=== PATIENT | female | born 1960 | race Caucasian/White ===

== ENCOUNTER 2022-09-03 14:09 | Observation (INO) | payer OTHER, SELFPAY ==
[2022-09-03] VITALS (9 sets, daily range): BP systolic 130–169; BP diastolic 57–78; PULSE 50–67; RESP 15–18; TEMP 36.4–36.7; O2SAT 98–100; BMI 30.4; BMI 28.2
--- NOTE | 2022-09-03 14:43 | EKG12_ITS ---
Test Reason : SYNCOPE Blood Pressure : / mmHG Vent. Rate : 066 BPM Atrial Rate : 066 BPM P-R Int : 188 ms QRS Dur : 138 ms QT Int : 418 ms P-R-T Axes : 066 -54 062 degrees QTc Int : 438 ms Sinus rhythm with occasional Premature ventricular complexes Left bundle branch block Abnormal ECG Confirmed by RONAK SINGLETARY, BRYCE ([id number]), supervising editor trailer MO REYES ([id number]) on 09/04/2022 9:46:01 AM Referred By: RAMON Confirmed By:BRYCE SIMONS MD
--- NOTE | 2022-09-03 15:00 | RAD_ITS ---
STUDY: X-RAY CHEST REASON FOR EXAM: Female, 62 years old. Chest pain . Near syncopal episode. TECHNIQUE: Single AP portable view of the chest. COMPARISON: None. FINDINGS: EKG electrodes are seen. The lungs are clear and expanded. There is no demonstrated pleural abnormality. Normal size heart. Normal mediastinum and chris. Normal visualized pulmonary arteries. Normal visualized aortic arch and descending thoracic aorta. Normal visualized thoracic spine. Normal visualized ribs, clavicles, and shoulders. There is no demonstrated abnormality of the visualized soft tissue structures of the upper abdomen. RAD/Chest 1 View (Portable) IMPRESSION: Normal x-ray examination of the chest. Electronically Signed: Otto Hurley MD at 15:12 EST ,
[2022-09-03 15:11] LABS: Absolute Lymphocyte Count 2.44 X10^3/uL (0.83-4.51); Absolute Neutrophil Count 4.2 X10^3/uL (2.0-7.7); Basophil# 0.03 X10^3/uL; Basophil% 0.4 % (0-1); Eosinophil# 0.04 X10^3/uL; Eosinophils% 0.6 % (0-5); Hematocrit 35.4 % (37-47); Hemoglobin 12.5 g/dL (12.0-15.0); Lymphocyte # 2.44 X10^3/ul (0.83-4.51); Lymphocyte % 34.6 % (19-41); Mean Corp Hgb Conc 35.3 g/dL (32-36); Mean Corpuscular Volume 87.8 fL (81-99); Mean Platelet Vol. 9.7 fl (6.2-12.0); Monocyte# 0.33 X10^3/uL; Monocyte% 4.7 % (0-10); NRBC Flagged by Analyzer 0 % (0-5); Neutrophil % 59.4 % (47-70); Platelet Count 260 K/mm3 (150-450); RBC Distribution Width CV 13.3 % (11.6-14.6); RBC Distribution Width SD 42.4 fl (35.1-43.9); Red Blood Count 4.03 M/mm3 (4.2-5.4); White Blood Count 7.1 K/mm3 (4.4-11.0)
[2022-09-03 15:19] LABS: Anion Gap 8 (5-15); BUN 21 mg/dL (7-18); BUN/Creat Ratio 16.9 RATIO (10-20); Calcium,Total 9.6 mg/dL (8.5-10.1); Chloride 105 mmol/L (98-107); Creatinine, Serum 1.24 mg/dL (0.55-1.02); EST Glomerular Filtration Rate 46 mL/min (>60); Est Glom Filt Rate - Afr Amer 56 mL/min (>60); Estimated Creatinine Clearance 43.47 ml/min; Glucose 136 mg/dL (74-106); Potassium 2.8 mmol/L (3.5-5.1); Sodium Level 141 mmol/L (136-145); Troponin-I HS 7 pg/mL (3.0-54.0)
--- NOTE | 2022-09-03 16:24 | CT_ITS ---
INDICATION: tia EXAMINATION: CT BRAIN - CT Head or Brain W/O Contrast Injection TECHNIQUE: Multiple axial images were obtained of the head without intravenous contrast. A radiation dose optimization technique was used for this scan. IV Contrast dosage and agent: None. COMPARISON: None available FINDINGS: BRAIN PARENCHYMA: No intra- or extra-axial hemorrhage. No evidence of acute infarct. No intracranial mass or mass effect. There is preservation of the davis/white matter interface. Posterior fossa structures are unremarkable. CSF SPACES: Appropriate for age. No hydrocephalus. Basal cisterns are patent. CALVARIUM, SKULL BASE, PARANASAL SINUSES AND MASTOID AIR CELLS: Clear. No discrete lytic or blastic abnormalities. ORBITS: Both globes, extraocular muscles, optic nerves and retrobulbar fat appear unremarkable. ASPECTS Score for Acute Strokes: 10 CT/Brain/Head without Contrast IMPRESSION: Negative Brain CT without contrast. Electronically Signed: Ab Lopez MD at 17:15 EST ,
--- NOTE | 2022-09-03 16:48 | EX.ED.DYSGE1 ---
HPI History of Present Illness Chief Complaint: Syncope Narrative Narrative: 62-year-old female presenting with concern for a fainting episode. She states she was out today and shopping and had eaten periodically throughout the day. She notes that she did have 1 episode of diarrhea. Then about 15 minutes later 200 she stated while she was checking out she felt like she was lightheaded. She was helped to sit down and was witnessed to not be speaking. Her eyes were open and she was not responding to questions. She was handed a cup of water which she did not grab. The patient does not recall this episode. She did not fall or hit her head. She states prior to this she was feeling well. She has a known. She has no history of syncope or seizure disorder. There was no seizure-like activity witnessed. After about 5 minutes the patient started speaking and making room and was noted to have a little bit of slurred speech which has resolved. Now she feels like she is a little bit off but she feels improved. She reports she did not have any chest pain or shortness of prior to the episode. No history of stroke or TIA. [facility] Medical History Atrial septal defect Pulmonary stenosis Home Medications aspirin 81 mg tablet,delayed release 81 mg PO DAILY PRN Pain 09/03/22 [History Last Taken 09/03/22] biotin 10 mg tablet 10 mg PO DAILY SUPPLEMENT 09/03/22 [History Last Taken 09/03/22] cholecalciferol (vitamin D3) 125 mcg (5,000 unit) capsule 125 mcg PO DAILY SUPPLEMENT 09/03/22 [History Last Taken 09/03/22] cyanocobalamin (vitamin B-12) 2,000 mcg tablet,extended release (Vitamin B-12 ER) 4,000 mcg PO DAILY SUPPLEMENT 09/03/22 [History Last Taken 09/03/22] losartan 50 mg-hydrochlorothiazide 12.5 mg tablet 1 tab PO DAILY 09/03/22 [History Last Taken 09/03/22] omeprazole 20 mg capsule,delayed release 20 mg PO DAILY 09/03/22 [History Last Taken 09/03/22] Allergy/AdvReac Type Severity Reaction Status Date / Time No Known Allergies Allergy Verified 09/03/22 14:17 Surgical History H/O kidney removal Social History Smoking Status: Never smoker ROS ROS ED Constitutional Constitutional ED: Denies chills or fever(s) Eyes Eyes: Denies change in vision or diplopia ENT ENT ED: Denies rhinorrhea or sore throat Cardiovascular Cardiovascular: Denies chest pain or palpitations EXAM Physical Exam Const Vital Signs: 09/03/22 14:13 09/03/22 14:18 09/03/22 14:47 Temperature 97.6 F L Temperature Source Temporal Pulse Rate 57 L Pulse Rate [Lying] Pulse Rate [Sitting (for 1 minute prior to obtaining)] Pulse Rate [Standing (for 1 minute prior to obtaining)] Respiratory Rate 15 Respiratory Effort Normal Non-Labored Respiratory Pattern Normal Blood Pressure 134/65 H Blood Pressure [Lying] Blood Pressure [Sitting (for 1 minute prior to obtaining)] Blood Pressure [Standing (for 1 minute prior to obtaining)] Blood Pressure Mean 88 Blood Pressure Mean [Lying] Blood Pressure Mean [Sitting (for 1 minute prior to obtaining)] Blood Pressure Mean [Standing (for 1 minute prior to obtaining)] Pulse Ox 99 100 Oxygen Delivery Method Room Air Room Air 09/03/22 16:43 09/03/22 16:10 Temperature Temperature Source Pulse Rate 58 L Pulse Rate [Lying] 64 Pulse Rate [Sitting (for 1 minute prior to obtaining)] 62 Pulse Rate [Standing (for 1 minute prior to obtaining)] 66 Respiratory Rate 15 Respiratory Effort Respiratory Pattern Blood Pressure 148/65 H Blood Pressure [Lying] 147/57 H Blood Pressure [Sitting (for 1 minute prior to obtaining)] 147/78 H Blood Pressure [Standing (for 1 minute prior to obtaining)] 148/65 H Blood Pressure Mean 92 Blood Pressure Mean [Lying] 87 Blood Pressure Mean [Sitting (for 1 minute prior to obtaining)] 101 Blood Pressure Mean [Standing (for 1 minute prior to obtaining)] 92 Pulse Ox 100 Oxygen Delivery Method Room Air Positive well nourished General Appearance ED: NAD; Negative for pallor HEENT Reports moist mucous membranes Negative for trauma Eyes PERRL and EOMs intact bilaterally General Eye ED: Yes pale conjunctiva and scleral icterus Neck no lymphadenopathy Chest Wall inspection of chest normal and palpation of chest normal Resp normal respiratory effort and clear to auscultation bilaterally Auscultation: Negative for rales, rhonchi or wheezes Cardio regular rate and regular rhythm GI normal to inspection, nondistended, normoactive bowel sounds Palpation: soft Neuro oriented x3 and CN's II-XII intact bilaterally Sensorium / Orientation: alert Motor Exam: strength 5/5 throughout Psych mental status grossly normal Skin no rashes or lesions noted General Skin Exam: Negative for jaundice or pallor MDM MDM MDM Narrative Medical decision making narrative: Patient presenting after a 5-minute episode where she was unresponsive. She was sitting upright with her eyes open and not responding. When she started to speak she was a little bit slurred initially but her speech improved. EMS obtained a blood sugar which was in the 130s. Patient did not have any seizure activity. She denies any history of syncope. She does not recall this episode at all. NIH stroke scale score of 0. Will obtain orthostatics. Is possible that she could have had a near syncopal episode however it does not explain 5 minutes of not responding. I will obtain a CBC to assess her hemoglobin and white blood cell count. Also obtain renal function and electrolytes that she states she only has 1 kidney. EKG was obtained which shows a sinus rhythm with occasional PVCs at a rate of 66 bpm. Chest x-ray on my interpretation shows no acute cardiopulmonary process. Radiology services agrees. Patient from out of town and I have no comparison lab work. Orthostatic vital signs are normal. CBC shows no evidence of anemia cytosis. Her platelets are normal. Creatinine 1.24. Glucose slightly elevated 136 without anion gap. Potassium is 2.8. High-sensitivity troponin is 7. Chest x-ray on my interpretation shows no acute cardiopulmonary process. Radiology services agrees. CT of the brain was obtained which is negative. Considering that the patient is not orthostatic and had no seizure-like activity I have to presume this is likely a TIA. I did obtain a dysphagia screen. Patient was given aspirin 325 mg, 40 mill equivalents of potassium. I discussed this with the hospitalist for admission. Impression: 1. TIA 2. Hypokalemia Lab Data Labs: Laboratory Results - last 24 hr 09/03/22 09/03/22 13:52 13:52 WBC 7.1 RBC 4.03 L Hgb 12.5 Hct 35.4 L MCV 87.8 MCH 31.0 MCHC 35.3 RDW Std Deviation 42.4 RDW Coeff of Edi 13.3 Plt Count 260 MPV 9.7 Immature Gran % (Auto) 0.300 Neut % (Auto) 59.4 Lymph % (Auto) 34.6 [place] % (Auto) 4.7 Eos % (Auto) 0.6 Baso % (Auto) 0.4 Absolute Neuts (auto) 4.2 Absolute Lymphs (auto) 2.44 Nucleated RBC % 0 Sodium 141 Potassium 2.8 L Chloride 105 Carbon Dioxide 28.0 Anion Gap 8 BUN 21 H Creatinine 1.24 H Estim Creat Clear Calc 43.47 Est GFR (MDRD) Af Amer 56 L Est GFR (MDRD) Non-Af 46 L BUN/Creatinine Ratio 16.9 Glucose 136 H Calcium 9.6 Troponin I High Sens 7 Radiography Diagnostic Testing: Clinical Impression(s) from Imaging Studies Chest X-Ray 09/03/22 15:00 IMPRESSION: Normal x-ray examination of the chest. Electronically Signed: Otto Hurley MD at 15:12 EST , Brain CT 09/03/22 16:24 IMPRESSION: Negative Brain CT without contrast. Electronically Signed: Ab Lopez MD at 17:15 EST , Discharge Plan Triage Chief Complaint: Syncope ED Provider: Bhavesh Rivera Dx/Rx/DC Orders Prescriptions: No Action omeprazole 20 mg capsule,delayed release(DR/EC) 20 mg PO DAILY Label Comments: TAKE 1 CAPSULE BY MOUTH EVERY DAY 30 MINUTES BEFORE MORNING MEAL losartan-hydrochlorothiazide 50-12.5 mg tablet 1 tab PO DAILY Label Comments: TAKE 1 TABLET BY MOUTH EVERY DAY biotin 10 mg Tablet 10 mg PO DAILY aspirin 81 mg Tablet,Delayed Release (Dr/Ec) 81 mg PO DAILY PRN (Reason: Pain) cyanocobalamin (vitamin B-12) [Vitamin B-12] 2,000 mcg Tablet Extended Release 4,000 mcg PO DAILY cholecalciferol (vitamin D3) 125 mcg (5,000 unit) Capsule 125 mcg PO DAILY
[2022-09-03] MEDS: Aspirin 325 MG Tablet PO (18:14)
[2022-09-03] MEDS: Potassium Chloride Oral Tablet 20 MEQ 40 MEQ PO (18:14)
--- NOTE | 2022-09-03 18:22 | PCM.HP.STD ---
HPI - General General Date of Admission: 09/03/22 Date of Service: 09/03/22 Chief Complaint: Unresponsive episode, dysarthria HPI Narrative KATHERINE MOYER, is a 62 F who presents to the emergency room at [facility] after being brought in due to an episode she had at a restaurant, patient sat down, she became unresponsive for approximately 5 minutes to verbal or tactile stimuli, patient does not have any memory of the event, when she started to recover, patient had some difficulty with her speech which corrected in a brief period of time. This was witnessed by her friend, there was no evidence of seizure activity, patient denies any history of seizure activity in the past, her medical history includes GERD and essential hypertension. Work-up in the emergency room included a CBC which showed a normal white blood cell count, hemoglobin was 12.5, potassium was 2.8, creatinine was 1.24 and BUN was 21. NIH stroke score was 0, patient's brain CT did not show any acute process. On examination, patient was alert and oriented, she was appropriate, there were no focal neurological deficits. The exact cause of the patient's unresponsiveness is unknown at this time, patient will be placed in observation status on PCU, she will be monitored, CTA of the head and neck will be performed and she will have an MRI of the brain performed. Patient will remain on her current medications, she will be given potassium replacement orally, potassium level will be repeated later on tonight. Patient will be seen by PT and OT, and H scores will be monitored. I have elected not to order an echocardiogram on the patient, if the patient's MRI of the brain results positive for stroke, she will need an MRI. Patient states she has a history of an atrial septal defect, she was told it was unnecessary to correct this. [facility] Medical History Atrial septal defect Pulmonary stenosis Home Medications aspirin 81 mg tablet,delayed release 81 mg PO DAILY PRN Pain 09/03/22 [History Last Taken 09/03/22] biotin 10 mg tablet 10 mg PO DAILY SUPPLEMENT 09/03/22 [History Last Taken 09/03/22] cholecalciferol (vitamin D3) 125 mcg (5,000 unit) capsule 125 mcg PO DAILY SUPPLEMENT 09/03/22 [History Last Taken 09/03/22] cyanocobalamin (vitamin B-12) 2,000 mcg tablet,extended release (Vitamin B-12 ER) 4,000 mcg PO DAILY SUPPLEMENT 09/03/22 [History Last Taken 09/03/22] losartan 50 mg-hydrochlorothiazide 12.5 mg tablet 1 tab PO DAILY 09/03/22 [History Last Taken 09/03/22] omeprazole 20 mg capsule,delayed release 20 mg PO DAILY 09/03/22 [History Last Taken 09/03/22] Allergy/AdvReac Type Severity Reaction Status Date / Time No Known Allergies Allergy Verified 09/03/22 14:17 Surgical History H/O kidney removal Social History Smoking Status: Never smoker ROS ROS Narrative Patient does not remember her episode of unresponsiveness today which was witnessed by her friend Constitutional Constitutional: Denies anorexia, change in weight, chills, fatigue, fever(s), night sweats or weakness Eyes Eyes: Denies blurry vision, change in vision, discharge from eye(s) or eye pain Cardiovascular Cardiovascular: Denies chest pain, claudication, edema or palpitations Respiratory/Chest Respiratory/Chest: Denies cough, hemoptysis, shortness of breath at rest or shortness of breath with exertion Gastrointestinal Gastrointestinal: Denies abdominal pain, constipation, diarrhea, hematemesis, hematochezia, melena, nausea or vomiting Genitourinary Genitourinary: Denies dysuria, hematuria, urinary frequency, urinary hesitancy, urinary incontinence or urinary urgency Musculoskeletal Musculoskeletal: Denies back pain, joint pain, joint stiffness, joint swelling, myalgias or neck pain Neurologic Neurologic: Reports abnormal speech and other Details: Again, patient had a period of unresponsiveness which lasted approximately 5 minutes, her eyes were open during this episode and there was no evidence of syncope. ; Denies abnormal gait, dizziness, focal weakness, headache(s), loss of vision, numbness, other visual disturbances, paresthesias, syncope or tingling Psychiatric Psychiatric: Denies anxiety, cognitive impairment, depression, irritability, mood swings or suicidal ideation Endocrine Endocrinology: Denies change in body appearance, cold intolerance, excessive sweating, heat intolerance, polydipsia or polyuria Hematologic/Lymphatic Hematologic/Lymphatic: Denies none, anemia, easy bleeding, easy bruising or lymphadenopathy Allergic/Immunologic Allergic/Immunologic: Denies rhinitis, urticaria, eczemia or asthma Vital Signs Vital Signs Vital Signs: 09/03/22 14:13 09/03/22 14:18 09/03/22 14:47 Temperature 97.6 F L Temperature Source Temporal Pulse Rate 57 L Pulse Rate [Lying] Pulse Rate [Sitting (for 1 minute prior to obtaining)] Pulse Rate [Standing (for 1 minute prior to obtaining)] Respiratory Rate 15 Respiratory Effort Normal Non-Labored Respiratory Pattern Normal Blood Pressure 134/65 H Blood Pressure [Lying] Blood Pressure [Sitting (for 1 minute prior to obtaining)] Blood Pressure [Standing (for 1 minute prior to obtaining)] Blood Pressure Mean 88 Blood Pressure Mean [Lying] Blood Pressure Mean [Sitting (for 1 minute prior to obtaining)] Blood Pressure Mean [Standing (for 1 minute prior to obtaining)] Pulse Ox 99 100 Oxygen Delivery Method Room Air Room Air 09/03/22 16:43 09/03/22 16:10 09/03/22 18:16 Temperature 98.1 F Temperature Source Temporal Pulse Rate 58 L 67 Pulse Rate [Lying] 64 Pulse Rate [Sitting (for 1 minute prior to obtaining)] 62 Pulse Rate [Standing (for 1 minute prior to obtaining)] 66 Respiratory Rate 15 16 Respiratory Effort Respiratory Pattern Blood Pressure 148/65 H 142/69 H Blood Pressure [Lying] 147/57 H Blood Pressure [Sitting (for 1 minute prior to obtaining)] 147/78 H Blood Pressure [Standing (for 1 minute prior to obtaining)] 148/65 H Blood Pressure Mean 92 93 Blood Pressure Mean [Lying] 87 Blood Pressure Mean [Sitting (for 1 minute prior to obtaining)] 101 Blood Pressure Mean [Standing (for 1 minute prior to obtaining)] 92 Pulse Ox 100 98 Oxygen Delivery Method Room Air Room Air 09/03/22 18:00 Temperature Temperature Source Pulse Rate 61 Pulse Rate [Lying] Pulse Rate [Sitting (for 1 minute prior to obtaining)] Pulse Rate [Standing (for 1 minute prior to obtaining)] Respiratory Rate 16 Respiratory Effort Respiratory Pattern Blood Pressure 143/68 H Blood Pressure [Lying] Blood Pressure [Sitting (for 1 minute prior to obtaining)] Blood Pressure [Standing (for 1 minute prior to obtaining)] Blood Pressure Mean 93 Blood Pressure Mean [Lying] Blood Pressure Mean [Sitting (for 1 minute prior to obtaining)] Blood Pressure Mean [Standing (for 1 minute prior to obtaining)] Pulse Ox 98 Oxygen Delivery Method Room Air Weight Weight: 85.4 kg Body Mass Index (BMI) 30.4 Physical Exam Const alert, oriented x3, no apparent distress, average body habitus and healthy appearing General Appearance: cooperative, well kempt and well developed Orientation / Consciousness: awake, oriented to person, oriented to place and oriented to time HEENT normocephalic, head/scalp atraumatic, hearing grossly normal bilaterally and moist oral mucous membranes Eyes PERRL, EOMs intact bilaterally and conjunctivae normal Neck supple, no JVD, thyroid normal and no carotid bruits General: trachea midline Resp normal respiratory effort, no retractions, no use of accessory muscles and clear to auscultation bilaterally Auscultation: Negative for rales, rhonchi or wheezes Cardio regular rate, regular rhythm, S1 normal heart sound, S2 normal heart sound, no murmurs, no rub and no gallops GI normal to inspection, nondistended, normoactive bowel sounds, soft to palpation, non-tender and non-distended Extremity normal to inspection and no clubbing, cyanosis or edema Skin no rashes or lesions noted General Skin Exam: no breakdown Neuro oriented x3, CN's II-XII intact bilaterally, moves all extremities, no focal motor deficits and no sensory deficits noted Sensorium / Orientation: awake, alert, oriented to person, oriented to place and oriented to time Speech: speech normal Motor Exam: strength 5/5 throughout Psych affect normal Results Lab / Micro Data Result Diagrams: 09/03/22 13:52 09/03/22 13:52 Labs: Laboratory Results - last 24 hr 09/03/22 13:52: WBC 7.1, RBC 4.03 L, Hgb 12.5, Hct 35.4 L, MCV 87.8, MCH 31.0, MCHC 35.3, RDW Std Deviation 42.4, RDW Coeff of Edi 13.3, Plt Count 260, MPV 9.7, Immature Gran % (Auto) 0.300, Neut % (Auto) 59.4, Lymph % (Auto) 34.6, [place] % (Auto) 4.7, Eos % (Auto) 0.6, Baso % (Auto) 0.4, Absolute Neuts (auto) 4.2, Absolute Lymphs (auto) 2.44, Nucleated RBC % 0 09/03/22 13:52: Sodium 141, Potassium 2.8 L, Chloride 105, Carbon Dioxide 28.0, Anion Gap 8, BUN 21 H, Creatinine 1.24 H, Estim Creat Clear Calc 43.47, Est GFR (MDRD) Af Amer 56 L, Est GFR (MDRD) Non-Af 46 L, BUN/Creatinine Ratio 16.9, Glucose 136 H, Calcium 9.6, Troponin I High Sens 7 Radiology Impression Chest X-Ray 09/03/22 15:00 IMPRESSION: Normal x-ray examination of the chest. Electronically Signed: Otto Hurley MD at 15:12 EST , Brain CT 09/03/22 16:24 IMPRESSION: Negative Brain CT without contrast. Electronically Signed: Ab Lopez MD at 17:15 EST , Assessment & Plan Assessment/Plan (1) Episode of unresponsiveness: PLAN: Plan 1. Episode of unresponsiveness-etiology unclear at this point, patient will be placed in observation status on PCU, neurochecks will be monitored, MRI of the brain will be performed, CT of the head and neck will be performed. Patient will be monitored on telemetry. #2 hypokalemia-this is probably secondary to her use of hydrochlorothiazide for her essential hypertension, oral potassium will be administered, repeat labs will be obtained tonight #3 essential hypertension-patient will remain on her home hypertensive medication #4 GERD-patient is on omeprazole at home, a PPI will be continued in the hospital Total clinical time spent by myself addressing the patient's medical issues, reviewing all the patient's data, and collaborating with patient's care team: 55 minutes Charges/Coding Visit Charges Inpatient E&M: 50815 Init Hosp L2
--- NOTE | 2022-09-03 18:40 | CT_ITS ---
INDICATION: Dysarthria EXAMINATION: CTA HEAD AND NECK TECHNIQUE: Routine carotid CT angiogram protocol was performed without and with IV contrast. In addition, images were obtained of the [place]. NASCET criteria using the distal ICAs for comparison were used for evaluation of stenoses. 3D reconstructions were reviewed. A radiation dose optimization technique was used for this scan. IV Contrast dosage and agent: 100 cc [id number] COMPARISON: Same day CT and MRI FINDINGS: --CTA NECK: AORTIC ARCH AND BRANCHES: Aberrant, retroesophageal right subclavian artery. Right common carotid artery left vertebral artery originate from the aortic arch. RIGHT CCA: No occlusion, significant stenosis or dissection. RIGHT ICA: No occlusion, significant stenosis or dissection. LEFT CCA: No occlusion, significant stenosis or dissection. LEFT ICA: No occlusion, significant stenosis or dissection. RIGHT VERTEBRAL ARTERY: No occlusion, significant stenosis or dissection. LEFT VERTEBRAL ARTERY: No occlusion, significant stenosis or dissection. NECK SOFT TISSUES: 2.5 cm right thyroid nodule. --CTA HEAD: --Anterior circulation: ICAs: No significant stenosis at the intracranial/visualized segments. ACAs: No significant stenosis at the visualized segments. ACOM: Present. MCAs: No significant stenosis at the visualized segments. --Posterior circulation: PCOMs: Dominant. rn x ray: No significant stenosis at the visualized segments. BASILAR ARTERY: No significant stenosis. VERTEBRAL ARTERIES: No significant stenosis at the intradural/visualized segments. Right vertebral artery terminates as PICA. No evidence of intracranial aneurysm or vascular malformation. CT/CTA Head AND Neck W/ Contrast IMPRESSION: Negative CTA Carotid and CTA Brain. 2.5 cm right thyroid nodule. Electronically Signed: Ab Lopez MD at 20:14 EST ,
--- NOTE | 2022-09-03 19:13 | MRI_ITS ---
STUDY: MRI BRAIN WITHOUT CONTRAST REASON FOR EXAM: Female, 62 years old. Dysarthria TECHNIQUE: Standardized multiplanar fat and water weighted pulse sequences were obtained. COMPARISON: No relevant prior imaging available for comparison. HEMISPHERES, CEREBELLUM AND BRAINSTEM: 1. The cerebral parenchyma, ventricular system, subarachnoid spaces have normal configuration. There is a normal gyral pattern. No midline shift. 2. Mild subcortical and periventricular white matter chronic ischemic change. 3. No intraparenchymal mass, hemorrhage, or acute territorial infarct. 4. The cerebellum, brainstem, basilar and suprasellar cisterns have normal appearance. No Chiari malformation. PITUITARY: Infundibulum and pituitary have normal configuration. Midline structures appear normal. CSF SPACES: Appropriate for age. No hydrocephalus. Basal cisterns are patent. VESSELS: 1. There are normal flow voids noted in the great vessels at the skull base ORBITS AND PARANASAL SINUSES: 1. Both globes, extraocular muscles, optic nerves and retrobulbar fat appear unremarkable. 2. Paranasal sinuses are clear. BONY ELEMENTS: Bony elements of the cranial vault, facial skeleton and skull base have normal appearance. SCALP AND SOFT TISSUES: Normal appearance of the soft tissues of the scalp and the visualized face MRI/Brain without Contrast IMPRESSION: 1. No intracranial mass, hemorrhage, or acute territorial infarct. 2. No radiographically significant sinus disease. Electronically Signed: Ab Lopez MD at 20:03 EST ,
[2022-09-03] MEDS: Potassium Chloride Oral Tablet 20 MEQ 60 MEQ PO (20:48)
[2022-09-03] MEDS: 0.9% Saline Lock 10 ML Syringe IV (20:57)
[2022-09-04 00:59] VITALS: BP 116/53; PULSE 51; RESP 16; TEMP 36.8; O2SAT 97
[2022-09-04 02:57] VITALS: PULSE 50
[2022-09-04 04:59] VITALS: BP 102/65; PULSE 53; RESP 18; TEMP 36.9; O2SAT 99
[2022-09-04 07:36] LABS: Anion Gap 7 (5-15); BUN 15 mg/dL (7-18); BUN/Creat Ratio 15.3 RATIO (10-20); Calcium,Total 9.4 mg/dL (8.5-10.1); Chloride 110 mmol/L (98-107); Cholesterol 179 mg/dL (200); Creatinine, Serum 0.98 mg/dL (0.55-1.02); EST Glomerular Filtration Rate 61 mL/min (>60); Est Glom Filt Rate - Afr Amer 74 mL/min (>60); Estimated Creatinine Clearance 55.01 ml/min; Glucose 101 mg/dL (74-106); High Density Lipoprotein 84 mg/dL; Potassium 4.4 mmol/L (3.5-5.1); Sodium Level 143 mmol/L (136-145); Triglycerides 79 mg/dL; Very Low Density Lipoprotein 16 mg/dL (5-40)
[2022-09-04] MEDS: Aspirin E.C. 81 MG Tablet PO ×2 (07:55)
[2022-09-04] MEDS: Pantoprazole Sodium 20 MG Tablet PO (07:55)
[2022-09-04] MEDS: hydroCHLOROthiazide 12.5mg 12.5 MG PO (07:55)
[2022-09-04 09:00] VITALS: BP 134/58; PULSE 51; RESP 18; TEMP 36.4; O2SAT 100
--- NOTE | 2022-09-04 09:01 | PN.HOSP_ITS ---
Subjective Subjective No events. Stated that when the event happened yesterday, patient was having abdominal cramps as well as some diarrhea. She was checking out and then just was unresponsive staring out. No tonic-clonic activity. No prior events similar though she did state that when she had something couple years ago she felt dizzy at that time. Objective Data Objective Data Vital Signs: Vital Signs Temp Pulse Resp BP Pulse Ox O2 Del Method 36.9 C 53 L 18 102/65 99 Room Air 09/04/22 04:59 09/04/22 04:59 09/04/22 04:59 09/04/22 04:59 09/04/22 04:59 09/04/22 05:18 Oxygen Delivery Method Room Air Weight: 79.333 kg Body Mass Index (BMI) 28.2 Intake & Output: Intake and Output for Last 24 Hours 09/02/22 09/03/22 09/04/22 23:59 23:59 23:59 Intake Total 240 / 240 300 / 300 Balance 240 / 240 300 / 300 Lab / Micro Data Result Diagrams: 09/03/22 13:52 09/04/22 06:20 Labs: Laboratory Results - last 24 hr 09/03/22 13:52: WBC 7.1, RBC 4.03 L, Hgb 12.5, Hct 35.4 L, MCV 87.8, MCH 31.0, MCHC 35.3, RDW Std Deviation 42.4, RDW Coeff of Edi 13.3, Plt Count 260, MPV 9.7, Immature Gran % (Auto) 0.300, Neut % (Auto) 59.4, Lymph % (Auto) 34.6, [place] % (Auto) 4.7, Eos % (Auto) 0.6, Baso % (Auto) 0.4, Absolute Neuts (auto) 4.2, Absolute Lymphs (auto) 2.44, Nucleated RBC % 0 09/03/22 13:52: Sodium 141, Potassium 2.8 L, Chloride 105, Carbon Dioxide 28.0, Anion Gap 8, BUN 21 H, Creatinine 1.24 H, Estim Creat Clear Calc 43.47, Est GFR (MDRD) Af Amer 56 L, Est GFR (MDRD) Non-Af 46 L, BUN/Creatinine Ratio 16.9, Glucose 136 H, Calcium 9.6, Troponin I High Sens 7 09/03/22 23:15: Potassium 4.0 09/04/22 06:20: Sodium 143, Potassium 4.4, Chloride 110 H, Carbon Dioxide 26.0, Anion Gap 7, BUN 15, Creatinine 0.98, Estim Creat Clear Calc 55.01, Est GFR (MDRD) Af Amer 74, Est GFR (MDRD) Non-Af 61, BUN/Creatinine Ratio 15.3, Glucose 101, Calcium 9.4, Triglycerides 79, Cholesterol 179, LDL Cholesterol 79, VLDL Cholesterol 16, HDL Cholesterol 84 Radiography Diagnostic Testing: Radiology Impression Chest X-Ray 09/03/22 15:00 IMPRESSION: Normal x-ray examination of the chest. Electronically Signed: Otto Hurley MD at 15:12 EST , Brain CT 09/03/22 16:24 IMPRESSION: Negative Brain CT without contrast. Electronically Signed: Ab Lopez MD at 17:15 EST , Head/Neck CTA 09/03/22 18:40 IMPRESSION: Negative CTA Carotid and CTA Brain. 2.5 cm right thyroid nodule. Electronically Signed: Ab Lopez MD at 20:14 EST Reading Location ID and State: [facility] / [place] Tel , Service support , Brain MRI 09/03/22 19:13 IMPRESSION: 1. No intracranial mass, hemorrhage, or acute territorial infarct. 2. No radiographically significant sinus disease. Electronically Signed: Ab Lopez MD at 20:03 EST , Physical Exam Const alert and no apparent distress Cardio regular rate, regular rhythm, S1 normal heart sound and S2 normal heart sound GI normal to inspection, nondistended, normoactive bowel sounds, soft to palpation, non-tender and non-distended Assessment & Plan Assessment/Plan (1) Vasovagal syncope: PLAN: MRI brain negative. CTA head and neck negative. Patient was ported as a staring off but had felt unwell and was diaphoretic before the episode occurred. No additional work-up. Patient has no prior history of seizures and had no seizure-like activity so I do not feel any additional seizure work-up is necessary at this time. (2) Hypokalemia: PLAN: resolved after replacement PLAN: Plan essential hypertension-patient will remain on her home hypertensive medication GERD-patient is on omeprazole at home, a PPI will be continued in the hospital
[2022-09-04] MEDS: Losartan Potassium 50 MG Tablet PO (09:43)
--- NOTE | 2022-09-04 11:16 | DCINST_ITS ---
Discharge Instructions Diet Discharge Diet: No restrictions Dressing / Incision Call your doctor if you observe: Fainting spells Follow Up Care Test Results: Test results from this visit will be discussed in further detail at your follow- up appointment, if applicable. Discharge Plan Admission Admit Date/Time: 09/03/22 18:30 Primary Reason for Your Visit: syncope Attending Provider: Jose Franz Primary Care Provider: Care Physician,No Primary Consulting Providers: Nba Umaña Discharge Orders/Prescriptions Prescriptions: Continued omeprazole 20 mg capsule,delayed release(DR/EC) 20 mg PO DAILY Label Comments: TAKE 1 CAPSULE BY MOUTH EVERY DAY 30 MINUTES BEFORE MORNING MEAL losartan-hydrochlorothiazide 50-12.5 mg tablet 1 tab PO DAILY Label Comments: TAKE 1 TABLET BY MOUTH EVERY DAY biotin 10 mg Tablet 10 mg PO DAILY aspirin 81 mg Tablet,Delayed Release (Dr/Ec) 81 mg PO DAILY PRN (Reason: Pain) cyanocobalamin (vitamin B-12) [Vitamin B-12] 2,000 mcg Tablet Extended Release 4,000 mcg PO DAILY cholecalciferol (vitamin D3) 125 mcg (5,000 unit) Capsule 125 mcg PO DAILY Referrals / Follow Up: Care Physician,No Primary [Primary Care Provider] - Within 2 Weeks Disposition Disposition (needs filled in before D/C Order can be placed): Home, Self Care
--- NOTE | 2022-09-04 11:18 | PCM.DC.SUM ---
Providers Date of Admission: 09/03/22 Primary Care Physician: No Primary Care Phys Reason For Visit: DYSARTHRIA,UNRESPONSIVENESS Diagnosis Discharge Diagnosis (1) Vasovagal syncope: Status: Acute Code(s): R55 - Syncope and collapse Plan: MRI brain negative. CTA head and neck negative. Patient was ported as a staring off but had felt unwell and was diaphoretic before the episode occurred. No additional work-up. Patient has no prior history of seizures and had no seizure-like activity so I do not feel any additional seizure work-up is necessary at this time. (2) Hypokalemia: Status: Acute Code(s): E87.6 - Hypokalemia Plan: resolved after replacement Plan essential hypertension-patient will remain on her home hypertensive medication GERD-patient is on omeprazole at home, a PPI will be continued in the hospital Medications at Discharge Home Medications aspirin 81 mg tablet,delayed release 81 mg PO DAILY PRN Pain 09/03/22 biotin 10 mg tablet 10 mg PO DAILY SUPPLEMENT 09/03/22 cholecalciferol (vitamin D3) 125 mcg (5,000 unit) capsule 125 mcg PO DAILY SUPPLEMENT 09/03/22 cyanocobalamin (vitamin B-12) 2,000 mcg tablet,extended release (Vitamin B-12 ER) 4,000 mcg PO DAILY SUPPLEMENT 09/03/22 losartan 50 mg-hydrochlorothiazide 12.5 mg tablet 1 tab PO DAILY 09/03/22 omeprazole 20 mg capsule,delayed release 20 mg PO DAILY 09/03/22 Hospital Course Operations None Procedures None Summary of Care Provided Minutes Spent on Discharge: 26 Weight / BMI Weight Weight: 79.333 kg Body Mass Index (BMI) 28.2 ABG / Lab / Microbiology Data Result Diagrams: 09/03/22 13:52 09/04/22 06:20 Laboratory: Laboratory Results - last 24 hr 09/03/22 13:52: WBC 7.1, RBC 4.03 L, Hgb 12.5, Hct 35.4 L, MCV 87.8, MCH 31.0, MCHC 35.3, RDW Std Deviation 42.4, RDW Coeff of Edi 13.3, Plt Count 260, MPV 9.7, Immature Gran % (Auto) 0.300, Neut % (Auto) 59.4, Lymph % (Auto) 34.6, [place] % (Auto) 4.7, Eos % (Auto) 0.6, Baso % (Auto) 0.4, Absolute Neuts (auto) 4.2, Absolute Lymphs (auto) 2.44, Nucleated RBC % 0 09/03/22 13:52: Sodium 141, Potassium 2.8 L, Chloride 105, Carbon Dioxide 28.0, Anion Gap 8, BUN 21 H, Creatinine 1.24 H, Estim Creat Clear Calc 43.47, Est GFR (MDRD) Af Amer 56 L, Est GFR (MDRD) Non-Af 46 L, BUN/Creatinine Ratio 16.9, Glucose 136 H, Calcium 9.6, Troponin I High Sens 7 09/03/22 23:15: Potassium 4.0 09/04/22 06:20: Sodium 143, Potassium 4.4, Chloride 110 H, Carbon Dioxide 26.0, Anion Gap 7, BUN 15, Creatinine 0.98, Estim Creat Clear Calc 55.01, Est GFR (MDRD) Af Amer 74, Est GFR (MDRD) Non-Af 61, BUN/Creatinine Ratio 15.3, Glucose 101, Calcium 9.4, Triglycerides 79, Cholesterol 179, LDL Cholesterol 79, VLDL Cholesterol 16, HDL Cholesterol 84 Radiography Diagnostic Testing: Radiology Impression Chest X-Ray 09/03/22 15:00 IMPRESSION: Normal x-ray examination of the chest. Electronically Signed: Otto Hurley MD at 15:12 EST , Brain CT 09/03/22 16:24 IMPRESSION: Negative Brain CT without contrast. Electronically Signed: Ab Lopez MD at 17:15 EST , Head/Neck CTA 09/03/22 18:40 IMPRESSION: Negative CTA Carotid and CTA Brain. 2.5 cm right thyroid nodule. Electronically Signed: Ab Lopez MD at 20:14 EST , Brain MRI 09/03/22 19:13 IMPRESSION: 1. No intracranial mass, hemorrhage, or acute territorial infarct. 2. No radiographically significant sinus disease. Electronically Signed: Ab Lopez MD at 20:03 EST , D/C Instructions Discharge Diet: No restrictions Call your doctor if you observe: Fainting spells Meaningful Use Info Meaningful Use Diagnoses (Choose all that apply): None applicable Discharge Plan Admission Admit Date/Time: 09/03/22 18:30 Primary Reason for Your Visit: syncope Attending Provider: Jose Franz Primary Care Provider: Care Physician,No Primary Consulting Providers: Nba Umaña Discharge Orders/Prescriptions Prescriptions: Continued omeprazole 20 mg capsule,delayed release(DR/EC) 20 mg PO DAILY Label Comments: TAKE 1 CAPSULE BY MOUTH EVERY DAY 30 MINUTES BEFORE MORNING MEAL losartan-hydrochlorothiazide 50-12.5 mg tablet 1 tab PO DAILY Label Comments: TAKE 1 TABLET BY MOUTH EVERY DAY biotin 10 mg Tablet 10 mg PO DAILY aspirin 81 mg Tablet,Delayed Release (Dr/Ec) 81 mg PO DAILY PRN (Reason: Pain) cyanocobalamin (vitamin B-12) [Vitamin B-12] 2,000 mcg Tablet Extended Release 4,000 mcg PO DAILY cholecalciferol (vitamin D3) 125 mcg (5,000 unit) Capsule 125 mcg PO DAILY Referrals / Follow Up: Care Physician,No Primary [Primary Care Provider] - Within 2 Weeks Disposition Disposition (needs filled in before D/C Order can be placed): Home, Self Care Charges/Coding Visit Charges Inpatient E&M: 30076 Disch Hosp
--- NOTE | 2022-09-04 12:02 | PHA.DC.MR ---
Pharmacy Service has performed discharge medication reconciliation for this patient. The patient's discharge medication list was reviewed for discrepancies and discrepancies were resolved. Home Medications aspirin 81 mg tablet,delayed release 81 mg PO DAILY PRN Pain 09/03/22 biotin 10 mg tablet 10 mg PO DAILY SUPPLEMENT 09/03/22 cholecalciferol (vitamin D3) 125 mcg (5,000 unit) capsule 125 mcg PO DAILY SUPPLEMENT 09/03/22 cyanocobalamin (vitamin B-12) 2,000 mcg tablet,extended release (Vitamin B-12 ER) 4,000 mcg PO DAILY SUPPLEMENT 09/03/22 losartan 50 mg-hydrochlorothiazide 12.5 mg tablet 1 tab PO DAILY 09/03/22 omeprazole 20 mg capsule,delayed release 20 mg PO DAILY 09/03/22
== END 2022-09-04 11:18 | disposition home or self-care (01) ==
LOC: ED 16:32 → PCU 19:20
PROVIDERS: Admitting Provider Internal Medicine; Emergency Provider Student in an Organized Health Care Education/Training Program
DX: R55 Syncope and collapse (principal); R73.9 Hyperglycemia, unspecified; R19.7 Diarrhea, unspecified; E87.6 Hypokalemia; I49.3 Ventricular premature depolarization; Z79.82 Long term (current) use of aspirin; R47.1 Dysarthria and anarthria; I10 Essential (primary) hypertension; K21.9 Gastro-esophageal reflux disease without esophagitis; Z79.899 Other long term (current) drug therapy; R47.81 Slurred speech
CPT/HCPCS: 36415; 70450; 70496; 70498; 70551; 71045; 80048; 80061; 84132; 84484; 85025; 93005; 99221; 99285; Q9967; A4216; G0378